=== PATIENT | female | born 1970 | race Caucasian/White ===

== ENCOUNTER → 2019-12-25 | Outpatient (CLI) | payer BC ==
[~2019-12-25] MED LIST: ADDERALL; AMBEREN; ASPIRIN EC81 M1; BACLOFEN 10MG T10 M1 PO; BLOOD PRESSURE; CYMBALTA60 MG; IMITREX4 MG/0.5 M; MECLIZINE 25 MG25 M1; METFORMIN; NEXIUM40 MG; NORCO 5-325 TA1 EACH PO; NORFLEX100 MG PO; WELLBUTRIN XL150 M1; ZANAFLEX4 M1 PO
== END ==
LOC: M.CT 13:00
PROVIDERS: ATTEND Family Medicine
DX: Z13.6 Encounter for screening for cardiovascular disorders (principal); E78.00 Pure hypercholesterolemia, unspecified